=== PATIENT | female | born 1975 | race Caucasian/White ===

== ENCOUNTER → 2016-08-28 | Day surgery (SDC) | payer BC, MEDICARE ==
[~2016-08-28] MED LIST: ABILIFY PO; ABILIFY10 MG PO; ACCU-CHEK D-TR1 CAR1; ACETAMINOPHEN PO; AMARYL PO; AMOXICILLIN875 MG PO; AMOXIL875 MG PO; ASPIRIN81 M1 PO; ASPIRIN81 M2 PO; BACITRACIN TOP; BENTYL10 MG PO; BENTYL20 M1 PO; BENTYL20 MG PO; BUSPAR30 MG PO; CELEBREX PO; CELEXA PO; CITALOPRAM HBR10 MG PO; CRESTOR40 MG PO; CYMBALTA PO; DERMACORT1 GM EXT; DEXILANT60 MG PO; ELMIRON100 MG PO; FENTANYL1 EACH TOP; FLEXERIL PO; FLEXERIL10 M1 PO; FLEXERIL10 MG PO; FLONASE 0.05% N16 G1; FLONASE16 GM; GABAPENTIN400 MG PO; GABAPENTIN800 MG PO; GLYNASE PO; HUMULIN N100 U/ML SUBQ; HUMULIN R500 U/ML; HYDROCODON-ACE1 EAC7 PO; HYDROCORTISONE15 G3 TP; HYOSCYAMINE0.125 M1 PO; IMDUR-ER30 M1 PO; IMITREX; IMITREX PO; JANUMET 50-1,1 UDTAB PO; K-DUR20 ME1 PO; K-LOR20 MEQ PO; KCL PO; KEFLEX250 M1 PO; KEFLEX500 M1 PO; KEFLEX500 MG PO; KLONOPIN PO; LANTUS SOLOSTAR3 ML SQ; LANTUS SQ; LANTUS100 U/ML SUBQ; LANTUS100 UNITS/ SUBQ; LEVAQUIN PO; LEVAQUIN750 MG PO; LIPITOR PO; LO-DOSE ASPIRIN81 M1 PO; LOMOTIL TABLET1 TAB PO; LORTAB 10/500 T1 TAB PO; LORTAB 5/500 TA1 TA1 PO; MEDROL PO; METFORMIN HCL500 M1 PO; METFORMIN PO; METOPROLOL TAR25 MG PO; METOPROLOL TART25 MG PO; MOBIC PO; MOTION SICKNESS25 M4 PO; NEURONTIN PO; NEURONTIN300 MG PO; NEURONTIN600 MG PO; NEURONTIN800 MG PO; NORCO 10-325 TA1 TAB PO; NORCO 10/3251 TAB PO; NOVOLOG100 U/M1 SQ; OMEPRAZOLE20 M2 PO; OMEPRAZOLE40 M1 PO; OMEPRAZOLE40 MG PO; ORUDIS75 M1 PO; PERCOCET 5-3251 TAB PO; PERCOCET PO; PHENERGAN PO; PHENERGAN W/CO120 ML PO; PHENERGAN25 M1 PO; PHENERGAN25 MG PO; POTASSIUM CHLO10 ME1 PO; POTASSIUM1 UDCAP.SA PO; PREMARIN PO; PRILOSEC PO; PRILOSEC20 M1 PO; PRILOSEC40 MG PO; PROZAC PO; PROZAC40 MG PO; REGLAN PO; RISPERIDONE1 MG PO; ROZEREM8 MG PO; SAVELLA100 MG PO; SAVELLA50 MG PO; SEROQUEL25 MG PO; SILVADENE TOP; ST JOSEPH ASPIR81 M1 PO; TEGRETOL PO; TEMAZEPAM PO; THORAZINE; THORAZINE PO; TOPROL XL 50 MG50 MG PO; TRILEPTAL600 MG PO; VICODIN 5/500 T1 TAB PO; VICODIN PO; VOLTAREN GEL TOP; VOLTAREN25 MG PO; VOLTAREN50 MG PO; VOLTAREN75 MG PO; WELLBUTRIN PO; WELLBUTRIN XL150 M2 PO; ZANAFLEX PO; ZANAFLEX4 M1 PO; ZITHROMAX PO; ZOCOR PO; ZOFRAN ODT4 MG DOB; ZOFRAN ODT4 MG PO; ZOFRAN PO; ZONEGRAM PO; ZONEGRAN100 M1 PO; ZONEGRAN100 MG PO; [UNRECOGNIZED DRUG - OTHER] SQ
--- NOTE | ~2016-08-28 | OR ---
Unit #: [id number] #: [id number] Patient: CIERRA LOVE [id number] [address] [address] [id number] O MR#: [id number] NAME: CIERRA LOVE. ROOM: Date of Procedure: 08/28/2016 Admission Date: 08/28/2016 Surgeon: Malcom Mesa M.D. : 1975 Attending Physician: Malcom Mesa M.D. Primary Care Physician: Bill Falcon M.D. OPERATIVE REPORT JOB NOTE: VERIFY CC INDICATIONS FOR PROCEDURE Esophagogastroduodenoscopy with biopsy. INDICATIONS FOR PROCEDURE The patient with history of dysphagia, previous history of esophageal dilation. She has chronic GERD symptoms. MEDICATIONS Monitored anesthesia. POSTOPERATIVE FINDINGS 1. Hiatal hernia. No esophagitis, strictures, or rings. 2. Possible small area of Brandon's like mucosa, biopsies taken. 3. Diffuse gastritis, biopsies taken. 4. Normal duodenum and distal duodenum. PLAN Continue PPI therapy. Reflux precautions. Follow up on the pathology report. DESCRIPTION OF PROCEDURE The patient was explained of the procedure, risks, and benefits along with the risks and benefits of anesthesia. She was brought to the endoscopy room. Propofol anesthesia was given. Bite block was placed. The scope was passed down the mouth into the esophagus, stomach, duodenum, and distal duodenum. Findings as described. Biopsies taken. Gently, I pulled it out of the patient's mouth. She tolerated it well. Dictated by... Galo Alcala/herminio TD: 08/29/2016 02:32 JOB #: [id number] CC: MD Malcom Winston M.D. Unit #: [id number] #: [id number] Patient: CIERRA LOVE OPERATIVE REPORT X Malcom Mesa MD X PROCEDURE OPERATIVE NOTE
== END | disposition home or self-care (01) ==
LOC: COPS 06:50
DX: K29.50 Unspecified chronic gastritis without bleeding (principal); K44.9 Diaphragmatic hernia without obstruction or gangrene; E11.9 Type 2 diabetes mellitus without complications; I10 Essential (primary) hypertension; F17.210 Nicotine dependence, cigarettes, uncomplicated; Z90.710 Acquired absence of both cervix and uterus; Z90.89 Acquired absence of other organs; Z90.49 Acquired absence of other specified parts of digestive tract; Z98.890 Other specified postprocedural states; Z88.8 Allergy status to other drugs, medicaments and biological substances; Z79.82 Long term (current) use of aspirin; Z79.899 Other long term (current) drug therapy
CPT/HCPCS: 82947; 88305; 88312

== ENCOUNTER → 2016-09-24 | Outpatient (CLI) | payer MEDICARE ==
--- NOTE | ~2016-09-24 | CT2 ---
[facility] A Service of [facility] RADIOLOGY TEXT RESULTS PATIENT: CIERRA LOVE LOCATION: [facility] : [birth year] UNIT #: [id number] AGE: [address]: Long Brown MD SEX: F ORDER DR: [id number] [place], [place] [address] [id number] O MR#: [id number] Acc #: [id number] NAME: CIERRA LOVE. : 1975 SEX: F STUDY DATE/TIME: 09/24/2016 12:52 UNIT: [facility] ROOM: STUDY DESCRIPTION: CT Abd and Pelv W Cont Attending Physician: Long Borwn M.D. Referring Physician: Long Brown M.D. Ordering Physician: Long Brown M.D. Primary Care Physician: Lalito Lopes M.D. MEDICAL IMAGING REPORT This report is preliminary unless electronic signature is present EXAM CT of the abdomen and pelvis with contrast INDICATIONS Epigastric abdominal pain for the past 6 months. PROCEDURE Contrast-enhanced CT of the abdomen and pelvis 100 mL of Isovue-370. This CT exam was performed with one or more of the following radiation dose reduction techniques: automatic exposure control, adjustment of mA and/or kV according to patient size, and iterative reconstruction. COMPARISON 04/21/2015 FINDINGS Abdomen with contrast: Included lung bases are clear. Liver enlarged measuring 21.7 cm. No liver mass. The spleen is mildly enlarged at 13.6 cm. The kidneys, adrenal glands, pancreas are unremarkable. Previous cholecystectomy. Bowel loops are nondilated. The appendix is normal. Pelvis with contrast: No pelvic mass or fluid. Previous hysterectomy. No aggressive appearing bone lesion. IMPRESSION 1. No acute findings in the abdomen or pelvis. 2. Hepatosplenomegaly. Dictated by... Naman Novoa M.D. [facility] A Service of [facility] RADIOLOGY TEXT RESULTS PATIENT: CIERRA LOVE LOCATION: [facility] : [birth year] UNIT #: [id number] AGE: [address]: Long Brown MD SEX: F ORDER DR: THIS IS AN ELECTRONICALLY VERIFIED REPORT Naman Novoa M.D. at 09/25/2016 7:19 AM EED/to TD: 09/24/2016 22:05 JOB #: [id number] MEDICAL IMAGING REPORT Page 1 of 1 COPY
--- NOTE | ~2016-09-24 | NM19 ---
[facility] A Service [facility] RADIOLOGY TEXT RESULTS PATIENT: CIERRA LOVE LOCATION: [facility] : [birth year] UNIT #: [id number] AGE: [address]: Long Brown MD SEX: F ORDER DR: [id number] [place], [place] [address] [id number] O MR#: [id number] Acc #: [id number] NAME: CIERRA LOVE. : 1975 SEX: F STUDY DATE/TIME: 09/24/2016 9:56 UNIT: [facility] ROOM: STUDY DESCRIPTION: [place] Gastric Emptying Study Attending Physician: Long Brown M.D. Referring Physician: Long Brown M.D. Ordering Physician: Long Brown M.D. Primary Care Physician: Lalito Lopes M.D. MEDICAL IMAGING REPORT This report is preliminary unless electronic signature is present EXAM Gastric emptying study, 09/24/2016 INDICATION Severe gastroesophageal reflux. Chronic reflux, abdominal bloating and epigastric abdominal pain. PROCEDURE Patient ingested 542 mcCi technetium-labeled sulfur colloid in eggs and water. Stomach was imaged in the anterior positive projections for 150 minutes. COMPARISON None. FINDINGS Stomach 0% empty at 0 minutes, 22% empty at 60 minutes, 25% empty at 90 minutes and 25% empty at 120 minutes and 30% empty at 150 minutes. IMPRESSION Delayed gastric emptying. Dictated by... Naman Novoa M.D. THIS IS AN ELECTRONICALLY VERIFIED REPORT Naman Novoa M.D. at 09/25/2016 7:19 AM EED/jaimie TD: 09/24/2016 21:22 [facility] A Service [facility] RADIOLOGY TEXT RESULTS PATIENT: CIERRA LOVE LOCATION: [facility] : [birth year] UNIT #: [id number] AGE: [address]: Long Brown MD SEX: F ORDER DR: LOC #: [id number] MEDICAL IMAGING REPORT Page 1 of 1 COPY
== END | disposition home or self-care (01) ==
LOC: CNUC 08:20
DX: K21.9 Gastro-esophageal reflux disease without esophagitis (principal); K30 Functional dyspepsia; R16.2 Hepatomegaly with splenomegaly, not elsewhere classified; R10.9 Unspecified abdominal pain
CPT/HCPCS: 74177; 78264; A9541; Q9967

== ENCOUNTER 2016-11-11 11:29 | Emergency (ER) | payer MEDICARE ==
[~2016-11-11 11:29] MED LIST changes: -LEVAQUIN PO
[2016-11-11 12:11] LABS: URINE SOURCE CLEAN CATCH
[2016-11-11 12:14] LABS: MICRO INDICATED? YES; URINE APPEARANCE HAZY; URINE BILIRUBIN NEG (NEG); URINE BLOOD 1+ (NEG); URINE COLOR YELLOW; URINE GLUCOSE NEG (NORM); URINE KETONE NEG (NEG); URINE LEUKOCYTE ESTERASE 3+ (NEG); URINE NITRATE NEG (NEG); URINE PROTEIN NEG (NEG)
[2016-11-11 12:17] LABS: CULTURE INDICATED? YES; URINE BACTERIA 3+ (NEG); URINE SQUAMOUS EPITHELIAL CELL FEW /[HPF]; URINE WBC 100-200 /[HPF] (0-5)
[2016-11-11] MEDS ORDERED: LEVAQUIN PO (12:40)
== END 2016-11-11 12:39 | disposition home or self-care (01) ==
LOC: SED 11:29
PROVIDERS: Emergency Medicine
DX: N10 Acute pyelonephritis (principal); Z90.710 Acquired absence of both cervix and uterus; Z90.49 Acquired absence of other specified parts of digestive tract
CPT/HCPCS: 81003; 87086; 87088; 87186; 99283